=== PATIENT | male | born 1940 | race Caucasian/White ===

== ENCOUNTER → 2018-02-20 | Day surgery (SDC) | payer OTHER, MEDICARE ==
[~2018-02-20] VITALS: Ht 154.9 cm; Wt 78.9 kg
--- NOTE | 2018-02-20 16:37 | RADIOLOGY REPORT ---
EXAMINATION: Intraoperative fluoroscopy CLINICAL INFORMATION: Optical urethrotomy COMPARISON: None. TECHNIQUE: Intraoperative fluoroscopy was provided for use by Dr. Burton. A total of 2 images were saved to PACS. Radiologist was not present during imaging. TOTAL FLUOROSCOPIC TIME: 0.1 minutes FINDINGS\E\IMPRESSION: Intraoperative fluoroscopy provided for use by Dr. Burton. Please see operative note for detailed findings.
--- NOTE | 2018-02-20 21:34 | Operative Report ---
Operative/Inv Procedure Report Surgery Date: 02/20/18 Name of Procedure: Retrograde urethrogram, laser of urethral stricture Pre-Operative Diagnosis: Urethral stricture Post-Operative Diagnosis: Urethral stricture Estimated Blood Loss: scant Surgeon/Fish Egg Packer: Sukhdeep Burton MD Anesthesia: general endotracheal tube Drains: 20 Frisian united auburn tip catheter Operative/Procedure Note Note: He has a history of prostate cancer, undergoing previous seed implantation. He had been having urinary difficulties for several months, and was found to have a urethral stricture. We reviewed various alternatives for treatment of the stricture, and he was interested in undergoing a urethrotomy. He and his family were made aware the risks inherent thereof including but not exclusive of , heart attack, stroke, hemorrhage requiring transfusion, urinary incontinence, recurrent stricture disease requiring further procedures etc. After careful consideration, they were agreeable to have him undergo the procedure which is as follows. After uneventful induction of general anesthesia the patient was placed in lithotomy position and prepped and draped in a sterile fashion. At this point a 14 Frisian Keith catheter was passed per meatus and into the urethra. The catheter balloon was gently inflated within the urethra, and a retrograde urethrogram was performed. This revealed a solitary bulbous stricture, but no other identifiable abnormalities. The Keith was removed, and a laser scope was passed. Urethra up to the area of the stricture. The stricture was passed a guidewire. The scope was then passed again, and a standard laser urethrotomy was performed in the 12 o'clock position using the diode laser. This yielded an excellent result, with good hemostasis. Visualization beyond the stricture did not reveal any bladder abnormalities. At this point indwelling guidewire was left in place, and over this was passed a united auburn tip catheter, 10 mL were placed in the balloon, and the patient was awakened and returned to recovery in good condition. Discharge Disposition: Same Day Admissions CC: Jason JOSE,Ramos Moralez
== END ==
LOC: STS 12-26 07:00
DX: N35.9 Urethral stricture, unspecified (principal); Z85.46 Personal history of malignant neoplasm of prostate; K74.60 Unspecified cirrhosis of liver; I10 Essential (primary) hypertension; I25.10 Atherosclerotic heart disease of native coronary artery without angina pectoris
CPT/HCPCS: 76000; J2250